=== PATIENT | female | born 1985 | race Caucasian/White ===

== ENCOUNTER → 2016-11-09 15:45 | Observation (INO) ==
[2016-11-09 14:08] LABS: Bilirubin,Urine Negative (Negative); Blood,Urine Negative (Negative); Color,Urine Yellow (Yellow); Glucose,Urine (UA) Normal (Normal); Ketones,Urine Negative (Negative); Leukocyte Esterase,Urine Trace (Negative); Nitrite,Urine Negative (Negative); PH,Urine 6.5 pH Units (5.0-8.0); Protein,Urine Negative (Neg-Trace); Specific Gravity,Urine 1.018 (1.010-1.025); Urobilinogen,Urine Normal (Normal)
[2016-11-09 14:10] LABS: Bacteria,Urine Few per hpf (None-Few); Hyaline Casts,Urine None Seen per lpf (None-Few); RBC,Urine 0-3 per hpf (0-3); Squamous Epithelial Cell,Urine Many per lpf (None-Few)
[2016-11-09 14:11] LABS: Clarity,Urine Clear (Clear)
[2016-11-09 14:14] LABS: Amphetamine Screen,Urine Negative ng/mL (Cutoff=1000); Barbiturate Screen,Urine Negative ng/mL (Cutoff=200); Benzodiazepines Screen,Urine Negative ng/mL (Cutoff=200); Cannabinoid Screen,Urine Negative ng/mL (Cutoff = 50); Cocaine Screen,Urine Negative ng/mL (Cutoff= 300); Opiate Screen,Urine Negative ng/mL (Cutoff=300); Phencyclidine Screen,Urine Negative ng/mL (Cutoff=25)
--- NOTE | 2016-11-09 14:20 | OB/GYN Progress Note ---
Date of Encounter: 11/09/16 Time of Encounter: 14:18 - Assessment and Plan (1) 32 weeks gestation of Current Visit: Yes Status: Acute Admitted for observation and labor evaluation. (2) Cramping affecting , antepartum Current Visit: Yes Status: Acute Continuous monitoring. Subjective - Subjective Principal diagnosis: 32 wks, abdominal cramping Interval history: Pt is a 31-year-old at 32w4d that comes to unit with complaint of abdominal cramping since she had a transvaginal ultrasound Sunday. Pt states the US was to check placenta placement due to previa. This US shows the previa has resolved. Pt reports + movement, denies vaginal bleeding, LOF. Antepartum ROS: movement normal, other (cramping), no loss of fluid, no vaginal bleeding Objective - Vital Signs Vital Signs: Intake and Output 11/08/16 11/09/16 11/09/16 23:59 07:59 15:59 Other: Weight 114 kg Patient Weight 11/09/16 23:59 Weight 114 kg - Exam FHR: auscultation normal, category 1 FHR comments: FHR 150 bpm, moderate variability, +15x15 accels, no decels. Category I tracing. Auscultation: bilateral: normal Abdomen: Present: normal appearance, soft, gravid Uterus: Present: normal Cervical dilation: Closed Cervix effacement: Thick station: Ballotable Comments: Per ADITYA Haro - Labs Labs: Abnormal lab results Ur Leukocyte Esterase Trace (Negative) H 11/09/16 13:50
[2016-11-09 14:23] LABS: Mucus,Urine Few (Few)
[2016-11-09 15:24] LABS: Candida DNA Not Detected (Not Detect); Gardnerella DNA Not Detected (Not Detect); Trichomonas DNA Not Detected (Not Detect)
--- NOTE | 2016-11-09 15:33 | Discharge Summary ---
Date of Encounter: 11/09/16 Time of Encounter: 15:33 - Discharge Diagnosis (1) 32 weeks gestation of Priority: Primary Status: Acute Comments: Return to provider in 2 weeks for scheduled appointment. (2) Cramping affecting , antepartum Priority: Secondary Status: Acute Comments: Patient encouraged to po hydrate Continue kick counts. PTL precautions given. - Discharge Medications Home Medications: Ferrous Sulfate 325 mg PO BID 11/09/16 [History] Complete Caplet 1 tab PO DAILY 11/09/16 [History] Allergies/Adverse Reactions: 3 Allergy/AdvReac Type Severity Reaction Status Date / Time ampicillin Allergy Hives Unverified 10/27/15 00:22 Data Procedures and tests throughout hospitalization: Laboratory Tests 11/09/16 11/09/16 11/09/16 13:50 13:50 14:21 Urine Color Yellow Urine Clarity Clear Urine pH 6.5 Ur Specific [place] 1.018 Urine Protein Negative Urine Glucose (UA) Normal Urine Ketones Negative Urine Blood Negative Urine Nitrite Negative Urine Bilirubin Negative Urine Urobilinogen Normal Ur Leukocyte Esterase Trace H Urine Microscopic RBC 0-3 Urine Microscopic WBC 5-15 H Ur Squamous Epith Cells Many H Urine Bacteria Few Hyaline Casts None Seen Urine Mucus Few Ur Culture Indicated? YES A Urine Opiates Screen Negative Ur Barbiturates Screen Negative Ur Phencyclidine Scrn Negative Ur Amphetamines Screen Negative U Benzodiazepines Scrn Negative Urine Cocaine Screen Negative U Marijuana (THC) Screen Negative Kim species DNA Not Detected Gardnerella DNA Probe Not Detected Trichomonas DNA Probe Not Detected Labs on day of discharge: Labs from last 24 hours 11/09/16 11/09/16 11/09/16 14:21 13:50 13:50 Urine Color Yellow Urine Clarity Clear Urine pH 6.5 Ur Specific [place] 1.018 Urine Protein Negative Urine Glucose (UA) Normal Urine Ketones Negative Urine Blood Negative Urine Nitrite Negative Urine Bilirubin Negative Urine Urobilinogen Normal Ur Leukocyte Esterase Trace H Urine Microscopic RBC 0-3 Urine Microscopic WBC 5-15 H Ur Squamous Epith Cells Many H Urine Bacteria Few Hyaline Casts None Seen Urine Mucus Few Ur Culture Indicated? YES A Urine Opiates Screen Negative Ur Barbiturates Screen Negative Ur Phencyclidine Scrn Negative Ur Amphetamines Screen Negative U Benzodiazepines Scrn Negative Urine Cocaine Screen Negative U Marijuana (THC) Screen Negative Kim species DNA Not Detected Gardnerella DNA Probe Not Detected Trichomonas DNA Probe Not Detected Date of admission: 11/09/16 13:15 Primary care physician: Ariel Rocha MD Discharging clinician: Marlen Bashir Anticipated date of discharge: 11/09/16 - Patient Status Disposition: Home, Self-Care Condition: Good Functional capacity at discharge: independent ambulation - Discharge Instructions Follow Up With: Ariel Rocha MD [Primary Care Provider] - López Liz MD [Partnered Physician] - Forms: Work/School Release Additional Instructions: LABOR AND DELIVERY DISCHARGE INSTRUCTIONS Signs and Symptoms to be Reported to your Doctor Immediately: * Sudden gush, continuous or intermittent lead of fluid from vagina (note the time of gush and color of fluid) * Onset of bright red vaginal bleeding with or without pain (if you had a vaginal exam during this visit you may notice some dark red spotting. This is normal.) * Lower abdominal cramping or backache that is premenstrual-like feeling. * More than 6 contractions in one hour. * Burning during urination, having to urinate more frequently or pain in your mid-back. * A change in the baby's activity. This could be an increase or decrease in activity. * Severe headache which does not go away with tylenol. * Sudden swelling in the face, hands, arms and/or legs. * Upper abdominal pain - sometimes associated with heartburn or nausea and is not relieved by Maalox, Mylanta or Tums. * Dizziness or blurred vision or visual disturbances (seeing stars/lights). * Kick Counts One hour after a meal, lay down on one side in a quiet place. Count the number of kelly the baby moves during an hour. If less than 6 movements, notify your physician. Diet: *Force fluids - 8-10 tall glasses of fluid per day. May include popsicles and jello. *Limit caffeine - this includes chocolate, coffee, tea, any soft drink containing such as all reji, Zeeshan Yellow and Mountain Dew - Diet and Activity Activity: increase activity as tolerated Diet: advance to your usual diet Hospital Course [facility] Time Attestation: Total time spent providing and/or coordinating discharge services: Time Spent: Less than 30 minutes Exam - Constitutional General appearance IM: A&O X 3 - Respiratory Respiratory exam: Present: CTAB - Cardiovascular Cardiovascular exam IM: Present: RRR, +S1, +S2 - GI/Abdominal GI/Abdominal exam IM: normal bowel sounds - Extremities Exam Extremities exam IM: Present: full ROM, normal capillary refill, normal inspection - Neurological Exam Neurological exam: alert, oriented X3 - VTE Reasons for not Prescribing Prophylaxis: Treatment not Indicated - Low risk for VTE
== END | disposition home or self-care (01) ==
LOC: 1NENULAB
PROVIDERS: ADMIT Obstetrics & Gynecology; ATTEND Obstetrics & Gynecology

== ENCOUNTER → 2016-12-22 16:15 | Observation (INO) ==
[2016-12-22 14:24] LABS: Basophils % 0.1 %; Eosinophils % 0.4 %; Hematocrit 33.9 % (35.3-44.9); Hemoglobin 11.2 g/dL (11.5-15.4); Immature Granulocytes % 0.4 % (0-4); Lymphocytes # 1.3 K/mcL (0.6-4.6); Lymphocytes % 16.6 %; Mean Corpuscular Hemoglobin 29.5 pg (28.0-33.3); Mean Corpuscular Volume 89.2 fL (83.0-100.0); Mean Platelet Volume 10.3 fL (9.4-12.4); Monocytes # 0.6 K/mcL (0.0-1.3); Monocytes % 8.1 %; Neutrophils # 5.8 K/mcL (1.6-8.9); Platelet Count 215 K/mcL (140-400); Red Cell Distribution Width 14.1 % (11.5-14.5); Segmented Neutrophils % 74.4 %
[2016-12-22 14:31] LABS: Amphetamine Screen,Urine Negative ng/mL (Cutoff=1000); Barbiturate Screen,Urine Negative ng/mL (Cutoff=200); Benzodiazepines Screen,Urine Negative ng/mL (Cutoff=200); Cannabinoid Screen,Urine Negative ng/mL (Cutoff = 50); Cocaine Screen,Urine Negative ng/mL (Cutoff= 300); Opiate Screen,Urine Negative ng/mL (Cutoff=300); Phencyclidine Screen,Urine Negative ng/mL (Cutoff=25)
[2016-12-22 14:34] LABS: Protein/Creatinine Ratio,Urine 0.19 mg/mg (0-0.20)
[2016-12-22 14:38] LABS: Alanine Aminotransferase 11 Units/L (0-55); Aspartate Amino Transferase 15 Units/L (5-34); BUN/Creatinine Ratio 11 (6-26); Blood Urea Nitrogen 7 mg/dL (7-20); Lactate Dehydrogenase 156 Units/L (159-327); Uric Acid 5.1 mg/dL (2.6-6.0); eGFR For African Americans > 60 (> 60); eGFR For Non-African Americans > 60 (> 60)
--- NOTE | 2016-12-22 16:12 | OB/GYN Progress Note ---
Date of Encounter: 12/22/16 Time of Encounter: 16:09 - Assessment and Plan (1) 38 weeks gestation of Current Visit: Yes Status: Acute (2) Elevated blood pressure affecting in third trimester, antepartum Current Visit: Yes Status: Acute BPs resolved. 112/69 and 132/84. all PIH labs negative. No cervical change on serial exam. Discharged to home with labor and pih precautions. Appt made for OB visit with Dr. Liz on Sunday. Dr Spring updated about labs and discharge. (3) Uterine contractions during Current Visit: Yes Status: Acute no cervical change on serial exams Subjective - Subjective Interval history: presents to triage from office with elevated blood pressure for PIH lab evaluation and labor check. Pt reports good movement and occasional contractions, denies vaginal bleeding or leaking of fluid, also denies headache or visual changes. No other complaints. Antepartum ROS: new complaints, movement normal, contractions, no loss of fluid, no vaginal bleeding Objective - Vital Signs Vital Signs: Intake and Output 12/22/16 12/22/16 12/22/16 07:59 15:59 23:59 Other: Weight 120.2 kg Patient Weight 12/22/16 23:59 Weight 120.2 kg - Exam FHR: auscultation normal FHR comments: Baseline 125 Auscultation: bilateral: normal Abdomen: Present: normal appearance, soft, gravid Uterus: Present: normal Cervical dilation: 1/long - Labs Labs: Abnormal lab results RBC 3.80 M/mcL (3.82-4.97) L 12/22/16 14:13 Hgb 11.2 g/dL (11.5-15.4) L 12/22/16 14:13 Hct 33.9 % (35.3-44.9) L 12/22/16 14:13 Lactate Dehydrogenase 156 Units/L (159-327) L 12/22/16 14:13 Urine Total Protein 43 mg/dL (1-14) H 12/22/16 14:13
== END | disposition home or self-care (01) ==
LOC: 1NENULAB
PROVIDERS: ADMIT Obstetrics & Gynecology; ATTEND Obstetrics & Gynecology

== ENCOUNTER 2016-12-28 08:00 | Inpatient (IN) ==
[~2016-12-28 08:00] MED LIST: Aminoglycoside Consult 1 EACH MC ONE
[2016-12-28] MEDS ORDERED: Ondansetron 4 MG/2 ML VIAL IVP PRN (09:58)
[2016-12-28] MEDS ORDERED: Naloxone 0.4 MG/ML INJ IVP PRN (09:58)
[2016-12-28] MEDS ORDERED: Famotidine 20 MG/2 ML VIAL IVP PRN (09:58)
[2016-12-28] MEDS ORDERED: *HR* Nalbuphine 20 MG/ML AMPUL IVP PRN (09:58)
[2016-12-28] MEDS ORDERED: miSOPROStol 25 MCG TABLET PO PRN (10:07)
[2016-12-28 10:23] LABS: Basophils % 0.1 %; Eosinophils # 0.1 K/mcL (0.0-0.6); Eosinophils % 0.6 %; Hematocrit 33.9 % (35.3-44.9); Hemoglobin 11.2 g/dL (11.5-15.4); Immature Granulocytes % 0.6 % (0-4); Lymphocytes # 1.3 K/mcL (0.6-4.6); Lymphocytes % 15.6 %; Mean Corpuscular Hemoglobin 29.2 pg (28.0-33.3); Mean Corpuscular Volume 88.5 fL (83.0-100.0); Mean Platelet Volume 10.7 fL (9.4-12.4); Monocytes # 0.5 K/mcL (0.0-1.3); Monocytes % 6.3 %; Neutrophils # 6.5 K/mcL (1.6-8.9); Platelet Count 208 K/mcL (140-400); Red Blood Count 3.83 M/mcL (3.82-4.97); Red Cell Distribution Width 14.2 % (11.5-14.5); Segmented Neutrophils % 76.8 %
[2016-12-28 10:36] LABS: Alanine Aminotransferase 9 Units/L (0-55); Aspartate Amino Transferase 12 Units/L (5-34); BUN/Creatinine Ratio 13 (6-26); Blood Urea Nitrogen 8 mg/dL (7-20); Lactate Dehydrogenase 154 Units/L (159-327); Uric Acid 4.8 mg/dL (2.6-6.0); eGFR For African Americans > 60 (> 60); eGFR For Non-African Americans > 60 (> 60)
[2016-12-28 10:43] LABS: Amphetamine Screen,Urine Negative ng/mL (Cutoff=1000); Barbiturate Screen,Urine Negative ng/mL (Cutoff=200); Benzodiazepines Screen,Urine Negative ng/mL (Cutoff=200); Cannabinoid Screen,Urine Negative ng/mL (Cutoff = 50); Cocaine Screen,Urine Negative ng/mL (Cutoff= 300); Opiate Screen,Urine Negative ng/mL (Cutoff=300); Phencyclidine Screen,Urine Negative ng/mL (Cutoff=25)
[2016-12-28] MEDS: Vancomycin 1,750 MG in D5% in Water 500 ML IVPB SCH ×2 (11:43→23:48)
[2016-12-28] MEDS ORDERED: Epidural Premix (fent/bupiv) 0 ML EP ONE (12:08)
--- NOTE | 2016-12-28 12:12 | OB/GYN History & Physical ---
Date of Encounter: 12/28/16 Time of Encounter: 11:55 Assessment and Plan (1) 39 weeks gestation of Current visit: Yes Status: Acute (2) Elective induction of labor planned Current visit: Yes Status: Acute - IV fluids. - Cytotec. - Nubain PRN for pain. - Epidural consult. - PIH labs. (3) GBS (group B Streptococcus carrier), +RV culture, currently Current visit: Yes Status: Acute Positive test on 12/05/16. Patient allergic to ampicillin.Resistant to clindamycin. - Vancomycin 1750 mg q12h History of Present Illness Chief complaint: Induction of labor HPI: Ms. Lantigua is a 31 year old female at 39 4/7 weeks gestation that presents for elective induction of labor. Patient reports good movement. She denies any vaginal fluid leakage or bleeding. She denies any regular contractions. She currently denies any GARDNER or vision changes. She denies nausea, but does admit that she vomited this morning. She denies any fever, chills, dysuria or diarrhea. GBS: positive Rubella: immune HepBSAg: non-reactive Varicella Ab: positive HIV Ag/Ab: non-reactive Past Med Surg Social Fam HX - Past Medical History Medical history: atrial fibrillation, other Psychiatric history: no psych history - Social History Smoking Status: Never smoker Smokeless Tobacco Status: No Alcohol use: none Drug use: none - Family History Father History Unknown: Yes Living Status: Still Living Hx Family Cardiac Disorders: Yes ([place], HTN) Obstetrical History - Pregnancies : 4 Para: 1 Term: 1 : 0 Ab's: 2 Livin Medications and Allergies Ferrous Sulfate 325 mg PO BID 11/09/16 [History] Complete Caplet 1 tab PO DAILY 11/09/16 [History] 3 Allergy/AdvReac Type Severity Reaction Status Date / Time ampicillin Allergy Hives Unverified 10/27/15 00:22 Exam - Vital Signs Vital signs: Initial Vital Signs Temp Pulse Resp BP 97.9 F 77 14 140/82 12/28/16 10:41 12/28/16 10:41 12/28/16 10:41 12/28/16 10:41 - Constitutional Constitutional: well developed, well nourished, no acute distress, obese - Lungs Respiratory exam: CTAB - Cardiovascular Cardiovascular exam: RRR, +S1, +S2 - Extremities Extremities exam: full ROM, normal capillary refill, normal inspection, radial pulses palpable and symmetrical Deep Tendon Reflex Grade: 2+ Normal - Comments Comments: Extremities: pedal pulses intact and symmetrical bilaterally. Results Result Diagrams: 12/28/16 10:09 12/28/16 10:09 Abnormal lab results Hgb 11.2 g/dL (11.5-15.4) L 12/28/16 10:09 Hct 33.9 % (35.3-44.9) L 12/28/16 10:09 Lactate Dehydrogenase 154 Units/L (159-327) L 12/28/16 10:09 All other labs normal. - VTE Reasons for not Prescribing Prophylaxis: Treatment not Indicated - Low risk for VTE
[2016-12-28] MEDS ORDERED: Epidural Premix (fent/bupiv) 110 ML EP SCH (12:15)
--- NOTE | 2016-12-28 14:57 | OB Labor Progress Note ---
Date of Encounter: 12/28/16 Time of Encounter: 14:54 Labor Progress Note - Subjective Subjective: Pt resting in bed comfortably. Denies pain at this time. - Cervix Cervix: 2/60/-3 - Heart Tones Heart Tones: 135 bpm, moderate variability, + 15x15 accels, no decels. Category I tracing - [place]: Irregular contractions. - Interventions Interventions: SVE Clarke bulb placed and filled with 30 mL Sterile Water Patient tolerated procedure without difficulty. - Plan Plan: Continue labor management Anticipate
[2016-12-28] MEDS ORDERED: Ringers Solution, Lactated 1,000 ML ONE ×2 (17:53→18:38)
[2016-12-28] MEDS ORDERED: Vancomycin 1,000 MG in D5% in Water 250 ML IVPB SCH (18:00)
--- NOTE | 2016-12-28 18:02 | OB Labor Progress Note ---
Date of Encounter: 12/28/16 Time of Encounter: 18:00 Labor Progress Note - Subjective Subjective: Patient resting comfortably between contractions. Rates contraction pain 4 of 10. Unsure at this time if she wants an epidural for pain management. - Cervix Cervix: 4/60/-2 - Heart Tones Heart Tones: 130 bpm, moderate variability, no accels, no decels. - [place] Bressler: q 3-4 minutes Abdomen palpates soft between contractions. - Interventions Interventions: SVE AROM for large amount of bloody fluid - Plan Plan: Continue labor management Consult anesthesia for possible epidural Dr. Liz aware of AROM
--- NOTE | 2016-12-28 18:20 | Anesthesia Evaluation PreOp ---
Date of Encounter: 12/28/16 Time of Encounter: 18:18 - Past History Planned Operation: JESSICA Cardiac History: Arrhythmia (Previous AFib, Successful Cardioversion) Pulmonary History: Denies Any Significant HX POURER CRANE LADLE History: Denies Any Significant HX Other Medical History: Denies Any Significant HX Anesthesia History: No Prior Anesthetic Complications Alcohol Use: none Drug use: none Medications and Allergies Ferrous Sulfate 325 mg PO BID 11/09/16 [History] Complete Caplet 1 tab PO DAILY 11/09/16 [History] 3 Allergy/AdvReac Type Severity Reaction Status Date / Time ampicillin Allergy Hives Unverified 10/27/15 00:22 - Meds/Allergy Pre-op Review Medications Reviewed: Yes Allergies Reviewed: Yes Beta Blockers on Current Med List: No Anesthesia Results - Labs 12/28/16 10:09 12/28/16 10:09 Anesthesia Exam Height: 1.6m Weight: 116kg NPO (# of Hours): 8 Pain Scale: 5 Pain Scale Used: Numeric (1 - 10) - HEENT Pupil (Motor): Pupils equal Mallampati: II Teeth: Normal Oral Opening: Greater than 3 - POURER CRANE LADLE LOC: Oriented POURER CRANE LADLE Motor: Normal RUE, Normal LUE, Normal RLE, Normal LLE, Normal Face POURER CRANE LADLE Sensory: Normal: RUE, LUE, RLE, LLE, Face - Cardiac Rhythm: Regular Murmur: None JVD: No Carotid Bruit: No - Pulmonary Breath Sounds: bilateral Clear Respiratory Effort: Symmetrical Anesthesia Assess/Plan ASA Score: 3 (BMI 45.5) Modified Tc Scale for Level of Consciousness: Cooperative, oriented, and tranquil Anesthetic Plan: General (plan b), Regional (plan a) Autologous Blood: Yes Monitoring Plan: Standard Monitors
[2016-12-28] MEDS ORDERED: Epidural Premix (fent/bupiv) 110 ML EP ONE (18:26)
[2016-12-28] MEDS ORDERED: Ringers Solution, Lactated 1,000 ML IVC SCH (19:00)
--- NOTE | 2016-12-28 19:31 | Anesthesia Procedures ---
Date of Encounter: 12/28/16 Time of Encounter: 19:29 Procedures: Anesthesia - Epidural/Spinal Patient ID/Chart reviewed: Yes Patient examined: Yes OB Eval: Gestational age: 38.4 OB Eval: : 4 OB Eval: Hx Para: 1 OB Eval: Dilated at (cm): 4 OB Eval: Contractions: Non-stressed pattern Consent Obtained: Yes Supplemental Oxygen: None/Room Air Site Prep: Aseptic Technique, Sterile prep and drape, Povidone-Iodine 1% Patient position: upright Local Anesthetic: Lidocaine 1% Amount of Local Anesthetic used: 3 Touhy Needle Gauge: 18 Touhy Needle Depth (cm): 9 Catheter Depth at Skin (cm): 20 Test Dose (1.5% Lido + Epi): Volume given (mls): 5 Test Dose Result: Negative Loading Dose: Other: 5mls of epidural pharm bag premix solution Loading Dose Administered: Thru Catheter Infusion Med: 0.125% Bupivacaine w/ 2 mcg/ml Fentanyl Infusion Rate (mls/hr): [address]: Tegaderm, Tape Interspace Used: L2-L3 Loss of Resistance (GURVINDER): Yes Blood: No CSF: Yes (on first epidural attempt) Paresthesia: No Procedure: first epidural attempt at L3-4, difficult attempt, but pt was able to say that it felt "midline." catheter inserted, positive csf. dropped to L4-5, difficult epidural attempt. moved to L2-3, easy epidural needle placement, catheter threaded easily, negative test dose of 5ml. see QS for complete vitals. bolus given, BP dropped to 87/46 hr 63 - 10mg of Ephedrine given. BP increased to 115/53 hr 60 122/61 hr 76 106/51 hr 70 118/58 hr 64 fhr stable. 142
[2016-12-28] MEDS ORDERED: *HR* Phenylephrine 10 MG/ML VIAL ONE (19:36)
[2016-12-28] MEDS ORDERED: EPHEDrine 50 MG/ML VIAL ONE (19:36)
[2016-12-28] MEDS: Oxytocin 20 units/ LR 1000 mL 20 UNIT/1,000 ML BAG IVC SCH (20:33)
--- NOTE | 2016-12-28 22:45 | OB Labor Progress Note ---
Date of Encounter: 12/28/16 Time of Encounter: 21:40 Labor Progress Note - Subjective Subjective: Pt resting in bed with epidural in place. No complaints at this time. - Cervix Cervix: 4/60/-2 - Heart Tones Heart Tones: 150 bpm, moderate variability, no accels, no decels. - [place]: q 3-4 min - Interventions Interventions: SVE IUPC placed - Plan Plan: Continue labor management Increase Pitocin as needed
[2016-12-29] MEDS ORDERED: Epidural Premix (fent/bupiv) 110 ML EP ONE ×2 (02:55→06:10)
[2016-12-29] MEDS ORDERED: Acetaminophen 325 MG TABLET PO ONE (05:56)
--- NOTE | 2016-12-29 07:18 | OB/GYN Procedure Note ---
Delivery - Delivery Date: 12/29/16 Provider: López Liz (Rajat Valladares, [facility]) Intrapartum events: none Delivery induction: AROM, oxytocin, paul, misoprostol Delivery monitor: external FHT, internal uterine Anesthesia: epidural Estimated Blood Loss: 200 - (s) Infant A Delivery Date: 12/29/16 Infant Delivery Time: 06:51 Presentation: vertex Position: CHERISE Route of delivery: Gender: Male Viability: Viable Pounds: 8 Ounces: 8 Weight Gram: 3850 kg at 1 minute: 8 at 5 mins: 8 Shoulder Dystocia: not encountered Specimens collected: cord blood Placenta: spontaneous Cord: nuchal cord, 3 umbilical vessels, delivered through nuchal - Repair Episiotomy: none Laceration Description: Perineal - 1st Degree - Complications Delivery complications: none Delivery comments: Called to delivery room, patient completely dilated and pushing well. Under maternal effort, spontaneous delivery of viable 8#8oz male infant over 1st degree perineal laceration, repaired with 3-0 Vicryl. Nuchal cord noted after delivery of head, delivered through. [place] to maternal abdomen, terminal meconium noted. Cord clamped and cut after a brief delay and infant taken to radiant warmer, apgars 8&8. Spontaneous delivery of intact placenta. EBL 200 mL. Mother and infant stable in room for 2 hour recovery. - Disposition Mom disposition: stable in LDR disposition: stable in LDR - Comments Comments: Patient progressed to complete and on the perineum. A live male weighing 8 pounds and 8 ounces delivered spontaneously. APGASRS were 8 and 8. Placenta delivered spontaneously and intact. Laceration was repaired with 3-0 Vicryl. Patient and baby were bonding.
[2016-12-29] MEDS: Oxytocin 20 units/ LR 1000 mL 20 UNIT/1,000 ML BAG IVC SCH (09:08)
[2016-12-29] MEDS ORDERED: Oxytocin 20 units/ LR 1000 mL 20 UNIT/1,000 ML BAG IVC SCH (09:32)
[2016-12-29] MEDS ORDERED: Benzocaine/Menthol 56 GM AEROSOL SPRAY TP PRN (09:32)
[2016-12-29] MEDS ORDERED: Lanolin 7 G OINT...G. TP PRN (09:32)
[2016-12-29] MEDS ORDERED: Acetaminophen 325 MG TABLET PO PRN (09:32)
[2016-12-29] MEDS: Prenatal Vit/FA 1 EACH TABLET PO SCH (10:17)
[2016-12-29] MEDS: Ibuprofen 600 MG TABLET PO PRN (16:56)
[2016-12-30] MEDS: Ibuprofen 600 MG TABLET PO PRN ×2 (01:26→10:32)
[2016-12-30 08:46] VITALS: BP 123/76
[2016-12-30] MEDS: Prenatal Vit/FA 1 EACH TABLET PO SCH (10:28)
--- NOTE | 2016-12-30 10:31 | Discharge Summary ---
Date of Encounter: 12/30/16 Time of Encounter: 10:28 - Discharge Diagnosis (1) Spontaneous vaginal delivery Priority: Primary Status: Acute Comments: 31-year-old status post normal spontaneous vaginal delivery after IOL. -Patient resting comfortably. Baby boy lactating and breast-feeding well. -Patient reports bowel movement this morning. She reports minimal lochia and clotting. -Patient meeting all milestones. -Patient stable for discharge home today. (2) Lactating mother Priority: Secondary Status: Acute Comments: Breast-feeding support and education given. -Patient does not need a breast pump prescription. -Lanolin given for nipple comfort. - Discharge Medications Prescriptions: Ibuprofen [Motrin] 600 mg PO Q6HR PRN #60 tablet PRN Reason: Cramping Home Medications: Ferrous Sulfate 325 mg PO BID 11/09/16 [History] Complete Caplet 1 tab PO DAILY 11/09/16 [History] Ibuprofen [Motrin] 600 mg PO Q6HR PRN #60 tablet 12/30/16 [Rx] Lanolin [Lansinoh] 1 appl TP TID PRN oint...g. 12/30/16 [Rx] Allergies/Adverse Reactions: 3 Allergy/AdvReac Type Severity Reaction Status Date / Time ampicillin Allergy Hives Unverified 10/27/15 00:22 Data Procedures and tests throughout hospitalization: Laboratory Tests 12/28/16 12/28/16 12/28/16 10:09 10:09 10:09 WBC 8.5 RBC 3.83 Hgb 11.2 L Hct 33.9 L MCV 88.5 MCH 29.2 MCHC 33.0 RDW 14.2 Plt Count 208 MPV 10.7 Immature Gran % 0.6 Seg Neutrophils % 76.8 Lymphocytes % 15.6 Monocytes % 6.3 Eosinophils % 0.6 Basophils % 0.1 Neutrophils # 6.5 Lymphocytes # 1.3 Monocytes # 0.5 Eosinophils # 0.1 Basophils # 0.0 BUN 8 Creatinine 0.60 Est GFR ( Amer) > 60 Est GFR (Non-Af Amer) > 60 BUN/Creatinine Ratio 13 Uric Acid 4.8 AST 12 ALT 9 Lactate Dehydrogenase 154 L Urine Opiates Screen Negative Ur Barbiturates Screen Negative Ur Phencyclidine Scrn Negative Ur Amphetamines Screen Negative U Benzodiazepines Scrn Negative Urine Cocaine Screen Negative U Marijuana (THC) Screen Negative Date of admission: 12/28/16 09:21 Primary care physician: Ariel Rocha MD Consults: 12/29/16 09:32 Consult to Vice President Tax [CONS] Routine Comment: Vaginal delivery, consult needed Discharging clinician: Lefty Marx Anticipated date of discharge: 12/30/16 - Patient Status Disposition: Home, Self-Care Condition: Good Functional capacity at discharge: independent ambulation Overall status at discharge: patient is progressing back to baseline - Discharge Instructions Follow Up With: Ariel Rocha MD [Primary Care Provider] - Merary Wiseman CNM [Non-Partnered Physician] - - Diet and Activity Activity: increase activity as tolerated Diet: advance to your usual diet Hospital Course Reason for admission: induction of labor Delivery: Episiotomy: none Laceration: 1st degree Other procedures: none complications: none Discharge diagnosis: IUP at term delivered [place] baby: male Hospital course: 31-year-old status post resting comfortably. Patient inquires about breast-feeding. Patient reports minimal lochia. She denies headache, blurry vision, or epigastric pain. She denies nausea or vomiting. She does report some back tenderness surrounding the site of the epidural. Patient states she feels stable for discharge and is comfortable with the plan. Time Attestation: Total time spent providing and/or coordinating discharge services: Time Spent: Less than 30 minutes Exam - Constitutional Vitals: Temp Pulse Resp BP Pulse Ox 97.7 F 62 20 123/76 97 12/30/16 08:45 12/30/16 08:45 12/30/16 08:45 12/30/16 08:45 12/30/16 08:45 General appearance IM: A&O X 3 - Respiratory Respiratory exam: Present: CTAB - Cardiovascular Cardiovascular exam IM: Present: RRR, +S1, +S2 - GI/Abdominal GI/Abdominal exam IM: no peritoneal signs - Uterine Tone: Firm Uterus Position: At Umbilicus, Left of Midline - Extremities Exam Extremities exam IM: Present: radial pulses palpable and symmetrical. Absent: calf tenderness, pedal edema - Neurological Exam Neurological exam: alert, normal gait
== END 2016-12-30 12:45 | disposition home or self-care (01) | DRG 775 ==
LOC: 1NENULAB 09:21 → 1NENUOBS 12-29 09:21
PROVIDERS: ADMIT Obstetrics & Gynecology; ATTEND Obstetrics & Gynecology